=== PATIENT | male | born 1995 | race Caucasian/White ===

== ENCOUNTER 2020-09-06 11:32 | Emergency (ER) | payer BC, OTHER ==
[~2020-09-06] VITALS: Ht 185.4 cm; Wt 86.2 kg
[2020-09-06 11:45] VITALS: BP 114/76
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
[2020-09-06] MEDS ORDERED: Albuterol/Ipratropium 3ml neb HHN ONE (12:30)
[2020-09-06 12:48] LABS: BASOPHILS % (AUTO) 2.5 % (0.0-2.0); EOSINOPHILS % (AUTO) 0.9 % (0.0-3.0); HEMATOCRIT 45.7 % (42.0-52.0); HEMOGLOBIN 15.8 G/DL (14.2-18.0); LYMPHOCYTES % (AUTO) 41.5 % (20.0-45.0); MEAN CORPUSCULAR VOLUME 88 FL (80-99); MONOCYTES % (AUTO) 6.5 % (1.0-10.0); NEUTROPHILS % (AUTO) 48.7 % (45.0-75.0); PLATELET COUNT 217 K/UL (150-450); RED BLOOD COUNT 5.19 M/UL (4.70-6.10); RED CELL DISTRIBUTION WIDTH 11.4 % (11.6-14.8); WHITE BLOOD COUNT 6.1 K/UL (4.8-10.8)
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
[2020-09-06 13:02] LABS: ANION GAP 7 mmol/L (5-15); BLOOD UREA NITROGEN 10 mg/dL (7-18); CALCIUM 8.9 MG/DL (8.5-10.1); CARBON DIOXIDE 27 MMOL/L (21-32); CHLORIDE 105 MMOL/L (98-107); POTASSIUM 4.5 MMOL/L (3.5-5.1); SODIUM 139 MMOL/L (136-145)
[2020-09-06 13:12] LABS: ALANINE AMINOTRANSFERASE 26 U/L (12-78); ALBUMIN 4.1 G/DL (3.4-5.0); ALBUMIN/GLOBULIN RATIO 1.6 (1.0-2.7); ALKALINE PHOSPHATASE 61 U/L (46-116); ASPARTATE AMINO TRANSFERASE 17 U/L (15-37); BILIRUBIN,TOTAL 0.7 MG/DL (0.2-1.0)
[2020-09-06] MEDS ORDERED: OMEPRAZOLE20 M2 ORAL (13:30)
[2020-09-06 13:45] VITALS: BP 114/76
--- NOTE | 2020-09-06 13:51 | NUR ---
ER DISCHARGE NOTE: Patient is cleared to be discharged per ERMD, pt is aox4, on room air, with stable vital signs. pt was given dc and prescription instructions, pt was able to verbalize understanding, pt id band and iv site removed without complications. pt is able to ambulate with steady gait. pt took all belongings.
--- NOTE | 2020-09-06 15:53 | Diagnostic Imaging Report ---
Indication: Chest pain Technique: One view of the chest Comparison: none Findings: Lungs and pleural spaces are clear. Heart size is normal. Impression: No acute process
== END 2020-09-06 13:45 | disposition home or self-care (01) ==
LOC: EMR 12:19
DX: R07.89 Other chest pain (principal); F12.90 Cannabis use, unspecified, uncomplicated; Z87.891 Personal history of nicotine dependence
CPT/HCPCS: 36415; 71045; 80053; 83880; 84484; 85025; 85379; 93005; 94640; 99284; U0002; J7620

== ENCOUNTER 2020-09-17 17:15 | Emergency (ER) | payer OTHER ==
[~2020-09-17] VITALS: Ht 190.5 cm; Wt 83.9 kg
[~2020-09-17 17:15] MED LIST: OMEPRAZOLE20 M2 ORAL
--- NOTE | 2020-09-17 17:27 | NUR ---
ED Nurse Note: came to ED due to abd pain 03/02 without n/v/d x3 days. breathing normal/even/unlabored. skin warm/dry. NAD noted.
[2020-09-17 17:28] VITALS: BP 119/63
--- NOTE | 2020-09-17 17:32 | Emergency Room Report ---
History of Present Illness General Chief Complaint: Abdominal Pain Source: Patient Present Illness HPI Disclaimer: Please note that this report is being documented using [employer] technology. This can lead to erroneous entry secondary to incorrect interpretation by the dictating instrument. HPI: 24-year-old male presents for evaluation of abdominal pain. He reports intermittent sharp pain in the right lower quadrant. Currently pain-free. Ongoing for the past 3 days. Denies nausea, vomiting, diarrhea, dysuria, hematuria, flank pain, fever, chills, chest pain, shortness of breath or other symptoms. He has been treating his symptoms with cannabis. Denies prior history of abdominal surgeries. Denies groin pain, testicular pain, groin mass history of hernia. Reporting normal bowel movements and continues to pass gas. PMH: Denied PSH: Denied Allergies: Denied Social Hx: THC use Allergies: Coded Allergies: No Known Allergies (Unverified , 09/06/20) COVID-19 Screening Contact w/high risk pt: No Experienced COVID-19 symptoms?: No COVID-19 Testing performed TELETYPE CLERK: No Nursing Documentation-PMH Past Medical History: No Stated History Review of Systems All Other Systems: negative except mentioned in HPI Physical Exam Vital Signs Date Time Temp Pulse Resp B/P (MAP) Pulse Ox O2 Delivery O2 Flow Rate FiO2 09/17/20 17:20 98.1 69 17 119/63 (81) 98 Room Air General: Awake and alert, no acute distress HEENT: NC/AT. EOMI. Cardiovascular: RRR. S1 and S2 normal. No murmur appreciated Resp: Normal work of breathing. No cough, wheezing or crackles appreciated Abdomen: Abdomen is soft, nondistended. Nontender. No masses. No rebound. No guarding. Negative Fitzgerald's. No flank tenderness. No CVA tenderness. Skin: Intact. No abrasions, laceration or rash over the exposed skin MSK: Normal tone and bulk. Moving all extremities. No obvious deformity. Neuro: Awake and alert. Mentating appropriately. Medical Decision Making Diagnostic Impression: Primary Impression: Abdominal pain ER Course 24-year-old male presents for evaluation of intermittent right lower quadrant pain over the past 3 days. Differential includes was not limited to co nstipation, gas pains, muscle strain, hernia among others. There is no palpable hernia on the patient's abdomen is nontender, no guarding, no masses and no findings. He is currently pain-free and otherwise has been in his usual state of health. He states he came in for a checkup and medical advice but does not warrant work-up if it is not indicated. I have low suspicion for significant intra-abdominal pathology given the duration and lack of infectious symptoms or other major findings on exam. Abdominal x-ray was obtained to evaluate for stool burden. No obstruction was identified. Nonspecific bowel gas pattern otherwise. Patient remained well-appearing in the emergency department and is stable for outpatient follow-up. I instructed him to keep a close eye on his symptoms and if they change in any way to return to the emergency department for full work-up but at this time do not believe he requires emergent labs or imaging. He agrees with this treatment plan and states he would return if his symptoms change. Other X-Ray Diagnostic Results Other X-Ray Diagnostic Results : X-Ray ordered: Abdomen # of Views/Limited Vs Complete: 1 View Indication: Pain EP Interpretation: Yes Interpretation: nonspecific bowel gas, no sbo Impression: No acute disease Electronically Signed by: Electronically signed by Dr. Ariel Lennon MD Last Vital Signs Date Time Temp Pulse Resp B/P (MAP) Pulse Ox O2 Delivery O2 Flow Rate FiO2 09/17/20 17:28 98.1 86 17 119/63 98 Room Air Disposition: HOME, SELF-CARE Condition: Stable Ariel Lennon MD Sep 17, 2020 17:32
[2020-09-17 17:40] VITALS: BP 119/63
--- NOTE | 2020-09-17 17:40 | NUR ---
ED Nurse Note: Pt cleared by health care Provider for discharge. DC instructions/prescription was given and explained to pt and verbalized understanding of teachings. All medical deviecs such as ID band removed. Pt is AAO x4, ambulatory and left with all personal belongings.
--- NOTE | 2020-09-18 14:42 | Diagnostic Imaging Report ---
Indication: Abdominal pain Technique: Supine view of the abdomen Comparison: none Findings: Bowel gas pattern is unremarkable. No masses or unusual calcifications. The bones are unremarkable Impression: Negative
== END 2020-09-17 17:40 | disposition home or self-care (01) ==
LOC: EMR 17:34
DX: R10.31 Right lower quadrant pain (principal)
CPT/HCPCS: 74018; 99283